=== PATIENT | male | born 1955 | race Caucasian/White ===

== ENCOUNTER 2023-07-22 13:52 | Outpatient (AMB) | payer MEDICARE, SELFPAY ==
--- NOTE | 2023-07-22 14:42 | MHC.OFFWIV ---
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 Cough productive of white sputum. He is a pack-a-day smoker. Patient reports he has started having chills in the last couple of days. He denies having a fever. Patient denies headaches, malaise, fatigue, body aches, congestion, vomiting, diarrhea, weakness or syncope. The patient states that 2 days ago he started with right upper chest wall pain, worse if he utilizes his right arm and worse with coughing. He finds relief with splinting the area when he coughs. Patient has been taking [id number] cough syrup and Mucinex without any relief. Review of Systems Const All systems reviewed & are unremarkable except as noted in HPI and below Physical Exam Vital Signs: Last Vital Signs Temp 98.3 F 07/22/23 14:44 Pulse 80 07/22/23 14:44 BP 130/70 07/22/23 14:44 Pulse Ox 97 07/22/23 14:44 Oxygen Delivery Method Room Air 07/22/23 14:44 BMI result Body Mass Index 30.1 General: awake, alert, oriented. Answers questions appropriately. Fully engaged in examination. Skin: warm, dry, intact HEENT: Normocephalic. Hearing intact. Cardiac: External chest normal in appearance. Respiratory: No cough, audible wheezing or stridor. LS diminished throughout. faint wheezes bilaterally. Abdomen: without gross distension. MS: No obvious swelling or deformities. Neurological: Oriented to person, place, time and situation. Thought process intact. Psychiatric: Appropriate mood and affect. Good judgment and insight. Assessment & Plan Assessment & Plan (1) Cough: Code(s): R05.9 - Cough, unspecified (2) Pectoralis muscle strain: Code(s): S29.011A - Strain of muscle and tendon of front wall of thorax, initial encounter Plan Patient presented to walk-in clinic for 3 weeks of cough and 2 days right chest wall muscle strain. CXR ordered for eval, images reviewed with Dr Hicks. Concern for RLL infiltrate. Z-Param ordered, take as instructed. Prednisone 60mg po daily X 3 days. Albuterol MDI, take 2 inhalations every 6hours as needed. Rest, drink plenty of fluids, Tylenol/Motrin as needed for fevers or pain. Follow up with pcp or return to clinic for any new or worsening symptoms Go to ER for shortness of breath, chest pain, syncope or weakness or if using albuterol inhaler more than prescribed. Orders: Orders XR chest 2V 07/22/23 R05.9 - Cough, unspecified Medications: New albuterol sulfate 90 mcg/actuation 2 inhalations inhalation Q6H PRN 1 ea 0RF shortness of breath or wheezing prednisone 60 mg (3 x 20 mg) PO DAILY 9 tabs 0RF azithromycin (Zithromax Z-Param) For 250 mg dose pack: take 500 mg today (day 1), then 250 mg for 4 days (days 2-5) PO 6 tabs 0RF Coding Level of Care Code New Pt Level 4 (39587) Diagnoses Cough R05.9 Pectoralis muscle strain S29.011A
[2023-07-22 14:44] VITALS: BP 130/70; PULSE 80; TEMP 36.8; O2SAT 97; BMI 30.1
== END 2023-07-22 15:34 | disposition home or self-care (01) ==
PROVIDERS: PCP Internal Medicine; Visit Provider Registered Nurse Emergency
DX: R05.9 Cough, unspecified (principal); S29.011A Strain of muscle and tendon of front wall of thorax, initial encounter
CPT/HCPCS: 99204

== ENCOUNTER 2023-07-22 15:03 | Outpatient (REF) | payer MEDICARE, SELFPAY ==
--- NOTE | ~2023-07-22 | XR_ITS ---
EXAMINATION: XR CHEST CLINICAL INFORMATION: Cough. COMPARISON: None available. TECHNIQUE: 2 views of the chest were obtained. FINDINGS: Normal heart size. No focal infiltrates, pleural effusion or pneumothorax. No evidence of pulmonary edema. Incidentally noted 1.1 cm pulmonary nodule projecting over the right lower lobe. No acute osseous findings. Visualized upper abdomen is within normal limits. XR/XR chest 2V IMPRESSION: 1. No acute cardiopulmonary findings. 2. Incidentally noted 1.1 cm pulmonary nodule projecting over the right lower lobe, possibly a calcified granuloma. Recommend further evaluation with a nonemergent outpatient chest CT. The report will be called to the ordering clinician by a [facility] Physician Pulmonary Specialist.
== END 2023-07-22 15:04 | disposition home or self-care (01) ==
LOC: HO.HMGCX 15:03
PROVIDERS: PCP Internal Medicine; Visit Provider Registered Nurse Emergency
DX: R05.9 Cough, unspecified (principal)
CPT/HCPCS: 71046